=== PATIENT | male | born 1970 | race American Indian/Alaskan Native ===

== ENCOUNTER 2017-07-20 07:24 | Outpatient (CLI) | payer OTHER ==
[2017-07-20] MEDS ORDERED: NACL ONE (09:13)
--- NOTE | 2017-07-20 10:27 | Cat Scan Report ---
CT scan of abdomen and pelvis with IV contrast: History: Mass of uncertain etiology and abdomen. Findings: Normal lung bases. No pleural pericardial effusion. Normal liver spleen pancreas and gallbladder. Normal adrenals kidneys and bladder. No free intraperitoneal fluid or air. No evidence of adenopathy. Gaseous colon with moderate volume stool in colon. No significant bowel distention. Appendix appears normal. No evidence of diverticulitis. Bilateral inguinal hernias containing fat. The right inguinal hernia measures 2.9 cm the left measures 2.4 cm Impression: Gaseous colon with moderate volume stool in colon. Bilateral inguinal hernia containing fat.
== END 2017-07-20 07:25 | disposition home or self-care (01) ==
LOC: CT 07:24
PROVIDERS: ATTEND Internal Medicine
DX: K40.90 Unilateral inguinal hernia, without obstruction or gangrene, not specified as recurrent (principal)
CPT/HCPCS: 74177; Q9967